=== PATIENT | female | born 1960 | race Hispanic/Latino ===

== ENCOUNTER 2019-03-27 09:49 | Day surgery (SDC) | payer OTHER ==
[2019-03-26 16:37] LABS: BASOPHILS % (AUTO) 0.6 % (0.0-5.0); EOSINOPHILS % (AUTO) 1.5 % (0.0-8.0); HEMATOCRIT 37.9 % (36-48); LYMPHOCYTES % (AUTO) 39.8 % (21.0-51.0); MEAN CORPUSCULAR HEMOGLOBIN 29.7 pg (27.0-33.0); MEAN CORPUSCULAR HGB CONC 33.2 g/dL (32.0-36.0); MEAN CORPUSCULAR VOLUME 89.4 fL (79-99); MONOCYTES % (AUTO) 4.6 % (3.0-13.0); NEUTROPHILS % (AUTO) 53.5 % (40.0-77.0); PLATELET COUNT (AUTO) 305 K/uL (130-400); RED BLOOD CELL COUNT(AUTO) 4.24 MIL/uL (4.00-5.50); RED CELL DISTRIBUTION WIDTH 12.7 % (11.0-15.5)
[2019-03-26 16:45] VITALS: BP 133/67
[2019-03-26 16:46] LABS: CREATININE 0.7 mg/dL (0.5-1.5); POTASSIUM 4.1 mmol/L (3.5-5.1)
[2019-03-27] VITALS (14 sets, daily range): BP systolic 139–160; BP diastolic 61–74
[~2019-03-27] VITALS: Ht 167.6 cm; Wt 78.1 kg
[~2019-03-27 09:49] MED LIST: ACET-66 PO; AEC81 PO; AMIT25TA9 PO; APPLE CIDER VINEGAR PO; ASCO10007 PO; ERGO500014 PO; INSU100C6 SQ; INSU100I21 SQ; LEVO88TA7 PO; METF-444 PO; MULTIVITAMINS PO; OMEGA RED PO; SIMV20TA6 PO; VITAMIN B12 SL
--- NOTE | 2019-03-27 10:10 | NUR ---
POTENTIAL FOR INFECTION: NO SHAVING NEEDED TO RIGHT SHOULDER STATED PER RAVINDER ALVAREZ MA. WIPED RT SHOULDER WITH YOANNA: 2% CHLORHEXIDINE GLUCONATE CLOTH PATIENTS PRE-OP SKIN PREP PER RAVINDER ALVAREZ MA.
[2019-03-27] MEDS ORDERED: EPINEPHRINE 1 MG/ML 30ML VIAL IJ ONE (10:40)
[2019-03-27] MEDS ORDERED: SODIUM CHLORIDE 0.9% 1000ML 1,000 ML IV ONE (10:46)
--- NOTE | 2019-03-27 11:15 | NUR ---
MEDICATIONS: PATIENTS LEFT CERTAIN MEDICATIONS AT HOME WHICH WERE VITAMIN B12 COMPLEX, INSULINS (LEVEMIR & NOVOLOG), LEVOTHYROXINE AND TYLENOL X-STRENGTH.
[2019-03-27] MEDS: CEFAZOLIN SODIUM 1 GM VIAL ONE ×2 (11:34→12:45)
[2019-03-27] MEDS ORDERED: MIDAZOLAM HCL 1 MG/ML 2ML VIAL ONE (12:14)
[2019-03-27] MEDS ORDERED: FENTANYL CITRATE PF 50 MCG/1 ML 2ML VIAL ONE ×2 (12:14→14:21)
[2019-03-27] MEDS ORDERED: LIDOCAINE PF 2% 5ML ABBOJECT ONE (12:17)
[2019-03-27] MEDS ORDERED: PROPOFOL 10 MG/ML 20ML VIAL IV ONE (12:17)
[2019-03-27] MEDS ORDERED: ROCURONIUM 10MG/1ML SYR 10 MG/ML ML ONE ×2 (12:18→13:10)
[2019-03-27] MEDS ORDERED: CHOL100040 PO (12:27)
[2019-03-27] MEDS ORDERED: FOLI20CA PO (12:27)
[2019-03-27] MEDS ORDERED: ROPIVACAINE 0.5% 5MG/ML 30ML IJ ONE (12:30)
[2019-03-27] MEDS ORDERED: GLYCOPYRROLATE 1 MG/5 ML SYRINGE ONE (14:38)
[2019-03-27] MEDS ORDERED: ONDANSETRON HCL 4 MG/2 ML VIAL ONE ×2 (14:38→14:59)
[2019-03-27] MEDS ORDERED: NEOSTIGMINE 5MG/5ML SYR IV ONE (14:39)
[2019-03-27] MEDS ORDERED: CEPH500B PO (15:00)
[2019-03-27] MEDS ORDERED: HYDR-4457 PO (15:00)
[2019-03-27] MEDS ORDERED: NAPR-1192 PO (15:00)
[2019-03-27] MEDS ORDERED: METOCLOPRAMIDE 10 MG/2 ML VIAL ONE (15:35)
--- NOTE | 2019-03-27 16:00 | NUR ---
RECEIVE PT RECEIVED FROM PACU AWAKE ALERT ORIENTED X3. PT STABLE. PT DENIES NAUSEA. RIGHT ARM SLING IN PLACE, RIGHT SHOULDER INCISION SITE WITH SOME SWELLING NOTED, ICE PACK APPLIED TO SITE. RIGHT SHOULDER DRESSING X3 DRY AND INTACT, NO OOZING NOTED, SENSATION INTACT, PULSES PRESENT, HAND GRASP WEAK. WILL CONTINUE TO MONITOR PT. CALL LOYA WITHIN REACH, WILL CALL FOR TO COME IN TO ROOM.
--- NOTE | 2019-03-27 16:15 | NUR ---
REPORT REPORT GIVEN TO LEVAR FERRER
== END 2019-03-27 17:00 | disposition home or self-care (01) ==
LOC: DAH 09:49
PROVIDERS: ATTEND Orthopaedic Surgery
DX: M75.01 Adhesive capsulitis of right shoulder (principal); M75.41 Impingement syndrome of right shoulder; M19.011 Primary osteoarthritis, right shoulder; E11.9 Type 2 diabetes mellitus without complications; M19.90 Unspecified osteoarthritis, unspecified site; E03.9 Hypothyroidism, unspecified; Z79.899 Other long term (current) drug therapy; Z79.4 Long term (current) use of insulin; Z79.84 Long term (current) use of oral hypoglycemic drugs; Z98.890 Other specified postprocedural states; Z90.710 Acquired absence of both cervix and uterus; G89.29 Other chronic pain; E78.5 Hyperlipidemia, unspecified
CPT/HCPCS: 29806; 29824; 29826; 36415; 64415; 80048; 82948 ×2; 85025; A4565; A4600; A4649 ×4; A4930; A6204; J0171; J0690; J2001; J2250; J2405 ×2; J2704; J2710; J2765; J2795; J3010 ×2; J3490; J7030 ×2

== ENCOUNTER → 2020-01-13 | Outpatient (CLI) | payer OTHER ==
[~2020-01-13] MED LIST changes: +CEPH500B PO; +CHOL100040 PO; +FOLI20CA PO; +HYDR-4457 PO; +NAPR-1192 PO; +SIMV-43 PO; -SIMV20TA6 PO
== END | disposition home or self-care (01) ==
LOC: RAH 10:00
PROVIDERS: ATTEND Family Medicine
DX: E04.1 Nontoxic single thyroid nodule (principal)
CPT/HCPCS: 76536

== ENCOUNTER → 2020-09-23 | Outpatient (CLI) | payer OTHER ==
[~2020-09-23] MED LIST changes: +ASCO100031 PO; -ASCO10007 PO
== END | disposition home or self-care (01) ==
LOC: RAH 07:42
PROVIDERS: ATTEND Internal Medicine Endocrinology, Diabetes & Metabolism
DX: E04.2 Nontoxic multinodular goiter (principal)
CPT/HCPCS: 76536